=== PATIENT | male | born 1995 | race Caucasian/White ===

== ENCOUNTER 2022-01-28 17:18 | Emergency (ER) | payer OTHER, SELFPAY ==
--- NOTE | ~2022-01-28 | CT_ITS ---
EXAMINATION: CT BRAIN W/O DATE: 01/28/2022 18:14 INDICATION: Dizziness TECHNIQUE: Computed tomography (CT) of the head was performed without intravenous contrast. The dose- length product was 605.33 mGy-cm. Automated exposure control and iterative reconstruction technique w ere employed. COMPARISON: No prior studies for comparison. FINDINGS: Normal brain parenchymal volume for age. Normal interiano-white differentiation. No acute intrac ranial hemorrhage, infarction, mass or mass effect. No ventriculomegaly or midline shift. Midline sagittal images demonstrate a normal corpus callosum, c raniovertebral junction and sella turcica. Basilar cisterns are patent. Paranasal sinuses and mastoids are pneumatized. No depressed skull fractures. IMPRESSION: 1. No acute intracranial abnormality. Reviewed, dictated and finalized at location A.
--- NOTE | ~2022-01-28 | CT_ITS ---
EXAMINATION: CT cervical spine wo con DATE: 01/28/2022 18:14 INDICATION: Neck pain after fall TECHNIQUE: Computed tomography (CT) of the cervical spine was performed without intravenous contrast. The dose-length product was 467 mGy-cm. Automated exposure control and iterative reconstruction tech nique were employed. COMPARISON: None FINDINGS: There is normal anatomic alignment of the cervical spine. No acute fracture or traumatic ma lalignment. Vertebral body heights are maintained. No evidence for perched facet. Craniovertebral elizabeth ction within normal limits. Odontoid process is normal. No significant paraspinal soft tissue abnorma lity. IMPRESSION: 1. No acute abnormality of the cervical spine. Reviewed, dictated and finalized at location A.
--- NOTE | ~2022-01-28 | CT_ITS ---
EXAMINATION: CT chst ab mark [place] w DATE: 01/28/2022 18:21 INDICATION: Status post fall from ladder. Severe low back pain. TECHNIQUE: Computed tomography (CT) of the chest, abdomen, pelvis, thoracic spine and lumbar spine wa s performed with 100 cc Omnipaque 350 intravenous contrast. The dose-length product was 1414.87 mGy-c m. Automated exposure control and iterative reconstruction technique were employed. COMPARISON: None FINDINGS: CHEST: No significant pleural or pericardial effusion. No thoracic lymphadenopathy. Heart size normal . No significant vascular abnormality. No pneumothorax. No focal airspace consolidation. No endobronc hial lesions. Abdomen/pelvis: The liver, spleen, pancreas, adrenal glands and kidneys are unremarkable. Gallbladder is present. Nonobstructive bowel gas pattern. No free air or free fluid. Nonobstructive bowel patter n. Colonic diverticulosis without diverticulitis. No evidence for hernia. Thoracic spine: Normal thoracic alignment. Mild thoracic spondylosis. No acute fracture. Lumbar spine: Normal lumbar lordosis. No acute fracture or traumatic malalignment. No significant dis c narrowing. IMPRESSION: 1. No acute abnormality. Reviewed, dictated and finalized at location A. IMPRESSION: 1. No acute abnormality.
[2022-01-28 17:22] VITALS: BP 91/68; PULSE 88; RESP 20; TEMP 36.8; O2SAT 97
--- NOTE | 2022-01-28 17:55 | ED.GENADULT ---
HPI - General Adult General Chief complaint: Back Pain/Injury Stated complaint: fell off 6 foot ladder, back pain Time Seen by Provider: 01/28/22 17:44 Source: RN notes reviewed History of Present Illness HPI narrative: Patient presents emergency department for a fall. Patient states approximately 6 feet up on a ladder when he fell backwards landing on his right hip and buttocks as well as striking his head he denies any loss of consciousness he states since that time he has had pain in his head and neck with any movement of his neck as well as pain throughout his entire spine he denies any chest pain or shortness of breath he does note some lower abdominal pain and states he is not taking thing for the pain states he was able to get up and walk after the fall Related Data Home Medications Medication Instructions Recorded Confirmed No Home Medications 01/28/22 01/28/22 Allergies Allergy/AdvReac Type Severity Reaction Status Date / Time No Known Allergies Allergy Verified 01/28/22 17:55 Review of Systems Review of Systems: Gen.: Denies fevers or chills Eyes: Denies eye pain or visual change ENT: Denies congestion Respiratory: Denies shortness of breath CV: Denies chest pain GI: Reports lower abdominal pain, denies nausea, emesis or diarrhea Musculoskeletal: See HPI Neuro: Denies numbness, tingling, weakness or focal weakness Skin: Denies rash Except as documented, all other systems reviewed and negative PMFSH Past Medical History Medical History (Updated 01/28/22 @ 20:42 by Venkatesh Rose DO) Patient denies significant medical history Social History Social History (Updated 01/28/22 @ 17:57 by Venkatesh Rose DO) Smoking status: Never smoker Exam Narrative: APPEARANCE: Well appearing, no apparent distress, well-nourished. HEENT: normocephalic atraumtaic. No facial tenderness EYES: PERRL NECK: C-collar present supple. No midline tenderness to palpation. Tender palpation bilateral perigee muscles C5-7 RESPIRATORY: No respiratory distress. Clear to auscultation bilaterally CARDIOVASCULAR: Regular rate and rhythm without murmurs rubs or gallops. ABDOMINAL: Soft, nontender, nondistended, no rebound or guarding MUSCULOSKELETAl: Moves all extremities. No tenderness to palpation of bilateral upper and lower extremities. No clubbing cyanosis or edema Back: Diffusely tender through the thoracic and lumbar spine Pelvis: Stable, nontender NEURO: Awake and alert ?3. Follows commands. Speech normal. No focal deficits. SKIN:: Warm, dry. Normal Color Course Course Emergency Course: Attempted to get patient out of bed still having severe pain in the right lower back states the pain radiates all the way up his back unable to get up and ambulate on his own at this time with trauma and still unable to ambulate will transfer to trauma center Discussed with patient need for transfer request [facility] Discussed with Dr. Teixeira [facility] agrees with transfer Vital Signs Vital signs: Vital Signs Temperature 98.2 F 01/28/22 17:22 Pulse Rate 88 01/28/22 17:22 Respiratory Rate 20 01/28/22 17:22 Blood Pressure 91/68 L 01/28/22 17:22 Pulse Oximetry 97 01/28/22 17:22 Oxygen Delivery Room Air 01/28/22 17:22 Temperature 98.2 F 01/28/22 17:22 Pulse Rate 75 01/28/22 20:20 Respiratory Rate 18 01/28/22 20:20 Blood Pressure 131/74 01/28/22 20:20 Pulse Oximetry 100 01/28/22 20:20 Oxygen Delivery Room Air 01/28/22 17:22 Medical Decision Making Vital Signs Vital Signs: Vital Signs Temperature 98.2 F 01/28/22 17:22 Pulse Rate 88 01/28/22 17:22 Respiratory Rate 20 01/28/22 17:22 Blood Pressure 91/68 L 01/28/22 17:22 Pulse Oximetry 97 01/28/22 17:22 Oxygen Delivery Room Air 01/28/22 17:22 Temperature 98.2 F 01/28/22 17:22 Pulse Rate 75 01/28/22 20:20 Respiratory Rate 18 01/28/22 20:20 Blood Pressure 131/74 01/28/22
[2022-01-28] MEDS: MORPHINE SULFATE (*CRX) 4 MG/ML INJ 2 MG IV PUSH (17:58)
[2022-01-28] MEDS: SODIUM CHLORIDE 0.9% IV 1,000 ML 999 ML IV CONT ×2 (17:58→18:35)
[2022-01-28 18:11] LABS: Basophils Absolute Auto 0.1 K/mm3 (0.0-0.1); Basophils Percent Auto 1.2 % (0.2-1.2); Eosinophils Absolute Auto 0.3 K/mm3 (0-0.3); Hemoglobin 15.3 g/dL (14.0-18.0); Immature Granulocyte Absolute 0.03 K/mm3 (0.00-0.031); Immature Granulocyte Percent A 0.4 % (0-0.5); Lymphocytes Absolute Auto 1.51 K/mm3 (0.9-3.2); Lymphocytes Percent Auto 18.3 % (18.3-44.2); Mean Corpuscular HGB Conc 35.6 g/dl (32-36); Mean Corpuscular Hemoglobin 29.9 pg (26-34); Mean Corpuscular Volume 84.1 fl (80-100); Mean Platelet Volume 9.5 fl (7.4-10.4); Monocytes Absolute Auto 0.6 K/mm3 (0.1-0.6); Monocytes Percent Auto 7.4 % (2.6-8.5); Neutrophils Absolute Auto 5.8 K/mm3 (1.3-6.7); Neutrophils Percent Auto 69.7 % (45.5-73.1); Platelet Count Result 343 k/mm3 (150-375); Red Blood Count 5.11 M/mm3 (4.6-6.20); Red Cell Distribution Width 12.2 % (11.5-14.5); White Blood Count 8.3 K/mm3 (4.5-10.0)
[2022-01-28 18:22] LABS: Partial Thromboplastin Time 28.6 SECONDS (22.3-36.8); Prothrombin Time 12.8 Seconds (11.1-14.7)
[2022-01-28 18:24] LABS: Alanine Aminotransferase 25 U/L (6-50); Albumin Level 4.5 g/dL (3.5-5.1); Alkaline Phosphatase 60 U/L (38-126); Anion Gap 12 mmol/L (8-16); Aspartate Amino Transferase 24 U/L (17-59); Bilirubin,Total 0.4 mg/dL (0.2-1.3); Blood Urea Nitrogen 19 mg/dL (9-20); Calcium 9.3 mg/dL (8.4-10.2); Carbon Dioxide 26 mmol/L (22-30); Chloride 102 mmol/L (98-107); Estimated CRCL calculation 89 ml/min; Estimated Glomerular Filt Rate > 60; Glucose 100 mg/dL (65-110); Potassium 3.9 mmol/L (3.4-5.0); Sodium 140 mmol/L (137-145)
[2022-01-28 18:36] VITALS: BP 115/57; PULSE 71; RESP 18; O2SAT 98
[2022-01-28] MEDS: KETOROLAC 30 MG/ML VIAL (*BKC) IV PUSH (19:23)
[2022-01-28] MEDS: MORPHINE SULFATE (*CRX) 2 MG/ML INJ IV PUSH (20:17)
[2022-01-28 20:20] VITALS: BP 131/74; PULSE 75; RESP 18; O2SAT 100
[2022-01-28] MEDS: cefTRIAXone 1 GM VIAL 0.5 GM IM (21:38)
[2022-01-28] MEDS: DOXYCYCLINE HYCLATE 100 MG TABLET PO (21:38)
== END 2022-01-28 21:59 | disposition short-term general hospital (02) ==
PROVIDERS: Emergency Provider Emergency Medicine
DX: S16.1XXA Strain of muscle, fascia and tendon at neck level, initial encounter (principal); S39.92XA Unspecified injury of lower back, initial encounter; S09.90XA Unspecified injury of head, initial encounter; Z20.2 Contact with and (suspected) exposure to infections with a predominantly sexual mode of transmission; W11.XXXA Fall on and from ladder, initial encounter
CPT/HCPCS: 36415; 70450; 71260; 72125; 72129; 72132; 74177; 80053; 85025; 85610; 85730; 96361; 96372; 96374; 96375; 96376; 99285; A9270; J0696; J1885; J2270; J7030; Q9967

== ENCOUNTER 2023-08-16 14:38 | Emergency (ER) | payer BC, SELFPAY ==
--- NOTE | ~2023-08-16 | XR_ITS ---
EXAM: XR knee LT 3V DATE: 08/16/2023 16:06 HISTORY: left knee pain . COMPARISON: None available. FINDINGS: Normal mineralization. No fracture or dislocation. No lytic or blastic lesion. Moderate tr icompartmental osteoarthritis. No erosion or periosteal change. Anterior soft tissue swelling. Normal margins of the patellar tendon are obscured. Moderate volume joint fluid. IMPRESSION: No acute osseous finding the left knee. Anterior soft tissue swelling/contusion. Possible patellar tendinopathy or patellar tendon injury. Moderate joint effusion. Reviewed, dictated and finalized at location K. IMPRESSION: No acute osseous finding the left knee. Anterior soft tissue swelli ng/contusion. Possible patellar tendinopathy or patellar tendon injury. Moderat e joint effusion.
[2023-08-16 14:44] VITALS: BP 135/76; PULSE 97; RESP 20; TEMP 35.9; O2SAT 100
[2023-08-16 15:35] LABS: Influenza A QL RT-PCR Negative (Negative); Influenza B QL RT-PCR Negative (Negative); RSV RNA, RT-PCR Negative (Negative); SARS-CoV-2 RNA PCR Negative (Negative)
[2023-08-16] MEDS: CYCLOBENZAPRINE HCL 10 MG TABLET PO (16:25)
[2023-08-16] MEDS: HYDROcodone/acetaminophen (*CRX) 5-325 MG TABLET 1 TAB PO (16:25)
[2023-08-16] MEDS: KETOROLAC 30 MG/ML VIAL (*BKC) IM (16:26)
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
[2023-08-16 16:30] VITALS: BP 129/78
[2023-08-16 18:05] VITALS: BP 128/73; PULSE 88; RESP 12; TEMP 36.7; O2SAT 100
== END 2023-08-16 18:06 | disposition home or self-care (01) ==
PROVIDERS: Preventive Medicine Aerospace Medicine; Emergency Provider Nurse Practitioner Family; Referring Provider Emergency Medicine
DX: S86.812A Strain of other muscle(s) and tendon(s) at lower leg level, left leg, initial encounter (principal); Z11.52 Encounter for screening for COVID-19; V80.010A Animal-rider injured by fall from or being thrown from horse in noncollision accident, initial encounter
CPT/HCPCS: 73562; 87637; 96372; 99283; A9270; J1885

== ENCOUNTER 2023-10-24 15:22 | Emergency (ER) | payer BC, SELFPAY ==
--- NOTE | ~2023-10-24 | XR_ITS ---
XR finger 4th LT min 2V Ordering provider: Efren Hickman History: . injury . Comparison: None. FINDINGS: BONES: No acute fracture or dislocation. JOINT SPACES: Normal. SOFT TISSUES: Normal. IMPRESSION: No acute osseous abnormality. Reviewed, dictated and finalized at location A.
--- NOTE | ~2023-10-24 | XR_ITS ---
XR shoulder LT min 2V Ordering provider: Efren Hickman History: . injury . Comparison: None. FINDINGS: BONES: No acute fracture or dislocation. JOINT SPACES: The acromioclavicular joint is normal. The glenohumeral joint is normal. SOFT TISSUES: Normal. IMPRESSION: No acute osseous abnormality left shoulder. Reviewed, dictated and finalized at location A.
[2023-10-24 15:25] VITALS: BP 124/79; PULSE 81; RESP 18; TEMP 36.4; O2SAT 100
--- NOTE | 2023-10-24 16:03 | ED.UPPEXIN ---
HPI - Extremity Injury (Upper) General Chief Complaint: Extremity Injury, Upper Stated Complaint: L shoulder and L 4th finger pain Time Seen by Provider: 10/24/23 15:56 Source: patient Mode of arrival: ambulatory Limitations: no limitations History of Present Illness HPI narrative: Patient is a 28 y/o male who presents to the ED with c/o L shoulder pain, finger pain. Patient reports he was playing football yesterday and went to tackle somebody with his left shoulder down, taking most of the impact. He also states he jammed his L 4th finger in the tackle. Complains of pain to his left shoulder, limited range of motion. Complains of pain to his left 4th digit. Denies numbness. Denies neck or back pain. Denied head injury or LOC. He took ibuprofen yesterday, has not taken anything for pain today. Related Data Allergies Allergy/AdvReac Type Severity Reaction Status Date / Time No Known Allergies Allergy Verified 10/24/23 16:10 Review of Systems Review of Systems: CONSTITUTIONAL: Denies fever, chills, or sweats. MUSCULOSKELETAL: See HPI. NEUROLOGIC: Denies headache, dizziness, numbness, or weakness. All systems reviewed & are unremarkable except as noted in HPI and below PMFSH Past Medical History Medical History Patient denies significant medical history Social History Social History Smoking status: Never smoker Exam Narrative: GENERAL: Well appearing, well-nourished, non-toxic, in no acute distress. HEAD: Normocephalic, atraumatic. RESPIRATORY: Airway patent, respirations nonlabored. CARDIOVASCULAR: Regular rate and rhythm without murmurs, rubs, or gallops. Radial pulses equal bilaterally. MUSCULOSKELETAL: No gross deformities. No tenderness throughout cervical midline spine. Limited range of motion of left shoulder flexion and extension due to pain. Tenderness over anterior lateral left shoulder joint. Sensation intact throughout left upper extremity. Mild limited flexion of L 4th digit due to pain. Swelling noted throughout base of finger with TTP in proximal finger. SKIN: Warm, dry, normal color. NEURO: A&O X3. Speech clear. PSYCHIATRIC: Appropriate mood and affect. Normal interaction. Course Vital Signs Vital signs: Vital Signs Temperature 97.6 F 10/24/23 15:25 Pulse Rate 81 10/24/23 15:25 Respiratory Rate 18 10/24/23 15:25 Blood Pressure 124/79 10/24/23 15:25 Pulse Oximetry 100 10/24/23 15:25 Oxygen Delivery Room Air 10/24/23 15:25 Temperature 97.6 F 10/24/23 15:25 Pulse Rate 81 10/24/23 15:25 Respiratory Rate 18 10/24/23 15:25 Blood Pressure 124/79 10/24/23 15:25 Pulse Oximetry 100 10/24/23 15:25 Oxygen Delivery Room Air 10/24/23 15:25 MDM - Extremity Injury (Upper) MDM Narrative Medical decision making narrative: Patient?s injury is consistent with musculoskeletal etiology. No signs of neurologic or vascular compromise on physical examination. Compartments are soft without signs of compartment syndrome. XR L shoulder and L 4th digit negative for acute fx's. Patient updated on imaging results. Consistent with muscular strain. Discussed possibility of rotator cuff injury. Patient placed in arm sling and metal finger splint for finger. Advised patient to continue Tylenol and ibuprofen as needed for pain, rice therapy. Will refer to orthopedics for further evaluation patient given return precautions. He agrees with plan. Discharged in stable condition. Medical Records Attestation: I reviewed the patient's medical records. Imaging Data Attestation: I personally reviewed and interpreted this imaging study as follows: Radiologist's impression: ITS Impressions Finger X-Ray 10/24/23 15:49 IMPRESSION: No acute osseous abnormality. Shoulder X-Ray 10/24/23 15:50 IMPRESSION: No acute osseous abno
[2023-10-24] MEDS: IBUPROFEN 400 MG TABLET 800 MG (16:22)
== END 2023-10-24 16:35 | disposition home or self-care (01) ==
PROVIDERS: Emergency Provider Physician Assistant
DX: S66.315A Strain of extensor muscle, fascia and tendon of left ring finger at wrist and hand level, initial encounter (principal); S46.912A Strain of unspecified muscle, fascia and tendon at shoulder and upper arm level, left arm, initial encounter; W18.30XA Fall on same level, unspecified, initial encounter; Y93.61 Activity, american tackle football
CPT/HCPCS: 29130; 73030; 73140; 99284; A4565; A9270